=== PATIENT | female | born 1965 | race Caucasian/White ===

== ENCOUNTER 2016-07-26 09:47 | Day surgery (SDC) | payer OTHER ==
[~2016-07-26] VITALS: Ht 175.3 cm; Wt 110.7 kg
[2016-07-26 10:22] VITALS: BP 134/82
[2016-07-26 14:35] VITALS: BP 135/77
[2016-07-26 15:45] VITALS: BP 121/76
== END 2016-07-26 15:50 | disposition home or self-care (01) ==
LOC: SDC 09:47
PROC: 0UDB8ZX Extraction of Endometrium, Via Natural or Artificial Opening Endoscopic, Diagnostic (ICD-10-PCS; principal; 2016-07-26)
DX: N95.0 Postmenopausal bleeding (principal); D25.9 Leiomyoma of uterus, unspecified; K21.9 Gastro-esophageal reflux disease without esophagitis; Z88.8 Allergy status to other drugs, medicaments and biological substances; Z87.891 Personal history of nicotine dependence
CPT/HCPCS: 88305; J0330; J1100; J1580; J1885; J2250; J2405; J3010; J7050; S0030

== ENCOUNTER 2016-12-19 21:03 | Inpatient (IN) | payer OTHER ==
[~2016-12-19] VITALS: Ht 177.8 cm; Wt 110.7 kg
[2016-12-20 11:33] VITALS: BP 130/71
[2016-12-20 16:39] VITALS: BP 137/67
[2016-12-20 19:34] VITALS: BP 146/76
[2016-12-20 20:04] LABS: HEMATOCRIT 38.9 % (36.0-46.0); MCH 28.3 PG (29.0-34.0); MCHC 31.9 G/DL (30.0-36.0); MCV 88.8 FL (83-99); MEAN PLAT.VOLUME 9.9 uM^3 (9.5-12.4); PLATELET COUNT 163 K/uL (156-360); RBC DIS.WIDTH-CV 12.7 % (11.8-14.6); RBC DIS.WIDTH-SD 41.4 % (39-53); RED BLOOD COUNT 4.38 M/uL (3.80-5.20); WHITE BLOOD COUNT 8.1 K/uL (4.1-10.2)
[2016-12-20 20:28] LABS: ANION GAP 8 MEQ/L (2-14); CHLORIDE 105 MEQ/L (99-109); GFR ESTIMATE (CALCULATED) > 59 mL/min/; GLUCOSE 145 mg/dL (70-99); POTASSIUM 3.5 MEQ/L (3.7-5.4); SAMPLE HEMOLYSIS CHECK 0; SAMPLE ICTERIC CHECK 0; SAMPLE LIPEMIA CHECK 0; SODIUM 140 MEQ/L (136-147); UREA NITROGEN (BUN) 14 mg/dL (9-23)
[2016-12-21 00:41] VITALS: BP 106/65
[2016-12-21 04:00] VITALS: BP 112/69
[2016-12-21 07:06] LABS: HEMATOCRIT 36.9 % (36.0-46.0); MCHC 33.1 G/DL (30.0-36.0); MCV 90.7 FL (83-99); MEAN PLAT.VOLUME 10.1 uM^3 (9.5-12.4); PLATELET COUNT 172 K/uL (156-360); RBC DIS.WIDTH-SD 42.8 % (39-53); RED BLOOD COUNT 4.07 M/uL (3.80-5.20)
[2016-12-21 07:14] VITALS: BP 96/64
[2016-12-21 07:29] LABS: ANION GAP 4 MEQ/L (2-14); CHLORIDE 102 MEQ/L (99-109); GFR ESTIMATE (CALCULATED) > 59 mL/min/; GLUCOSE 119 mg/dL (70-99); SAMPLE HEMOLYSIS CHECK 0; SAMPLE ICTERIC CHECK 0; SAMPLE LIPEMIA CHECK 0; SODIUM 138 MEQ/L (136-147); UREA NITROGEN (BUN) 9 mg/dL (9-23)
[2016-12-21 07:36] LABS: POTASSIUM 4.7 MEQ/L (3.7-5.4)
[2016-12-21 11:45] VITALS: BP 108/53
[2016-12-21 15:10] VITALS: BP 95/53
[2016-12-21 19:30] VITALS: BP 96/52
[2016-12-22] VITALS: BP 119/77
[2016-12-22 04:06] VITALS: BP 105/57
[2016-12-22 06:50] VITALS: BP 134/63
[2016-12-22 07:06] LABS: HEMATOCRIT 33.7 % (36.0-46.0); MCH 29.6 PG (29.0-34.0); MCHC 32.6 G/DL (30.0-36.0); MCV 90.8 FL (83-99); MEAN PLAT.VOLUME 10.4 uM^3 (9.5-12.4); PLATELET COUNT 144 K/uL (156-360); RBC DIS.WIDTH-SD 42.7 % (39-53); RED BLOOD COUNT 3.71 M/uL (3.80-5.20); WHITE BLOOD COUNT 6.1 K/uL (4.1-10.2)
[2016-12-22 07:38] LABS: ANION GAP 6 MEQ/L (2-14); CHLORIDE 104 MEQ/L (99-109); GFR ESTIMATE (CALCULATED) > 59 mL/min/; GLUCOSE 92 mg/dL (70-99); POTASSIUM 4.4 MEQ/L (3.7-5.4); SAMPLE HEMOLYSIS CHECK 0; SAMPLE ICTERIC CHECK 0; SAMPLE LIPEMIA CHECK 0; SODIUM 139 MEQ/L (136-147); UREA NITROGEN (BUN) 14 mg/dL (9-23)
[2016-12-22 11:06] VITALS: BP 118/69
== END 2016-12-22 13:08 | disposition home or self-care (01) | DRG 743 ==
LOC: ENRESERV 21:03 → 2SOUTH 12-20 10:40 → 2EAST 12-20 10:50 → 2SOUTH 12-20 10:50 → ENRESERV 12-20 15:34 → 2EAST 12-20 16:30
PROVIDERS: Obstetrics & Gynecology Gynecologic Oncology
DX: D25.1 Intramural leiomyoma of uterus (principal); N83.201 Unspecified ovarian cyst, right side; N83.202 Unspecified ovarian cyst, left side; N95.0 Postmenopausal bleeding; Z79.82 Long term (current) use of aspirin; Z88.0 Allergy status to penicillin; Z88.5 Allergy status to narcotic agent; Z80.3 Family history of malignant neoplasm of breast; Z82.49 Family history of ischemic heart disease and other diseases of the circulatory system; Z82.3 Family history of stroke; Z84.1 Family history of disorders of kidney and ureter
CPT/HCPCS: 36415; 80048; 85027; 86850; 86900; 86901; 86920; 88305; 88307; 94799; J0330; J1100; J1170; J1580; J1650; J1885; J2250; J2405; J2765; J3010; J7050; S0030